=== PATIENT | male | born 1965 ===

== ENCOUNTER 2019-08-25 01:56 | Emergency (ER) | payer OTHER ==
[~2019-08-25 01:56] MED LIST: EPINEPHrine 1:10,000 1 MG/10 ML SYRINGE ONE
--- NOTE | 2019-08-25 02:45 | Emergency Department Report ---
ED CPR HPI - General Chief Complaint: Cardiac Arrest/CPR Stated Complaint: CARDIAC ARREST Time Seen by Provider: 08/25/19 02:28 Source: family, EMS Mode of arrival: Stretcher Limitations: Other - History of Present Illness Initial Comments: 53-year-old male presents ED by EMS in cardiac arrest. EMS state they received a call for sick person. State that when they arrived patient was unresponsive, pulseless, and not breathing. Initial rhythm was asystole. Anurag tube and an IO were placed. Patient was given Epi x 2 prior to ED arrival. EMS state it is unknown when pt was last seen well or any past medical history due to language barrier. They state they arrived on scene at approx 01:25 AM. EMS reports they have been working the arrest for approx 25 min MD Complaint: found unresponsive Place: home Initial Findings in the Field: unresponsive, no respirations, no pulse, other rhythm (asystole) ROSC in the Field: No Treatments Prior to Arrival: other airway device (Anurag tube), chest compressions, epinephrine mgs # (2) - Related Data Allergies Allergy/AdvReac Type Severity Reaction Status Date / Time Unable to Assess Allergy Unverified 08/25/19 02:16 ED Review of Systems ROS: Stated complaint: CARDIAC ARREST Other details as noted in HPI Comment: Unobtainable due to pts medical conditions ED Physical Exam - General Limitations: Other - Head Head exam: Present: atraumatic - Eye Pupils: Present: other (fixed and dilated bilaterally) - ENT ENT exam: Present: other (Anurag tube in place) - Neck Neck exam: Present: normal inspection - Respiratory Respiratory exam: Present: other (no spontaneous breaths) - Cardiovascular Cardiovascular Exam: Present: other (pulseless) - GI/Abdominal GI/Abdominal exam: Present: soft. Absent: distended - Extremities Exam Extremities exam: Present: other (IO in right lower leg) - Neurological Exam Neurological exam: Present: other (GCS=3) - Skin Skin exam: Present: other (purple discoloration to face and neck) ED Medical Decision Making - Medical Decision Making Please see nurse's note for code details. Pt initially presented in asystole. Pt down for approx 25 min w/ EMS. IO appeared to be infiltrated, so peripheral IV was placed and meds given via that line. Pt may not have actually received the Epi from EMS. Code was continued according to ACLS guidelines, however, ROSC was not achieved. Time of called at 02:10 AM. Family notified. Critical care attestation.: If time is entered above; I have spent that time in minutes in the direct care of this critically ill patient, excluding procedure time. ED Disposition Clinical Impression: Cardiac arrest Disposition: DC-20 Is pt being admited?: No Condition: Stable Referrals: PRIMARY CARE, [Primary Care Provider] - 3-5 Days Time of Disposition: 02:59
== END 2019-08-25 03:00 ==
LOC: ED 01:56
DX: I46.9 Cardiac arrest, cause unspecified (principal)
CPT/HCPCS: 99285; J0171